=== PATIENT | female | born 1990 | race Caucasian/White ===

== ENCOUNTER 2022-02-22 06:13 | Day surgery (SDC) | payer BC, SELFPAY ==
--- NOTE | 2022-02-22 06:21 | SUR.PREOP ---
HOME COVID TEST NEGATIVE DONE ON @ 2100.
[2022-02-22 06:29] VITALS: BP 114/78; PULSE 92; RESP 16; TEMP 36.7; O2SAT 100
[2022-02-22 06:30] VITALS: BMI 24.7
[2022-02-22] MEDS: LACTATED RINGERS 1000 ML 1,000 ML 100 ML IV (06:35)
[2022-02-22] MEDS: SODIUM CHLORIDE 0.9 % (FLUSH) 10 ML SYRINGE IVF (06:35)
[2022-02-22 06:48] LABS: Ur HCG Qualitative* Negative (Negative)
[2022-02-22] MEDS: CEFAZOLIN 2 GM INJ IVP (07:30)
--- NOTE | 2022-02-22 07:48 | W.ANESCHARGE ---
Anesthesia Charges Start Date/Time Anesthesia Start Date: 02/22/22 Anesthesia Start Time: 07:20 Stop Date/Time Anesthesia Stop Date: 02/22/22 Anesthesia Stop Time: 08:05 Summary Emergency: No
--- NOTE | 2022-02-22 08:05 | PM.GSPRC ---
Operative Note Date of procedure: 02/22/22 Type of Procedure: 1. Excision of the left preauricular facial cyst. Procedure Description: After discussing the risks and benefits of the procedure, the patient signed informed consent.? The operative site was marked and the patient was brought to the operating room and placed on the operating table in supine position.? Care was taken to pad the patient's pressure points.?? The patient was then sedated by anesthesia.?? The operative site was then prepped and draped in the usual sterile fashion.? A time-out was then performed. Local anesthetic was injected in the surgical site. A vertical elliptical incision was made around the cyst excising hyperemic skin that comprised the anterior wall of the cyst. Subcutaneous tissues were divided with a scalpel. The cyst appeared to be very superficial positioned over the superficial fascia. No deep openings or fistulous tracts were noted in subcutaneous tissue. Once the cyst was removed, it was sent to pathology. It was measuring 2.6 x 1.4 cm. Hemostasis was achieved with cautery. Superficial skin flaps were developed anteriorly with cautery. the incision was then reapproximated with 3-0 Vicryl sutures. The skin was closed with a running 4-0 Monocryl stitch. Steri-Strips and sterile pressure dressing were placed over the incision. ? The patient was then woken and transported to the recovery area in stable condition. ? The patient tolerated the procedure well. Findings: Superficial simple appearing cyst. No definite cyst wall was noted but necrotic tissue was noted in the excised tissue. No deep fistulous tracts were noted. Anesthesia: MAC and local Surgeon: Zane Patino MD Estimated blood loss (mL): 2 Condition: stable Disposition: same day
[2022-02-22 08:10] VITALS: BP 96/62; PULSE 88; RESP 16; TEMP 36.9; O2SAT 98
[2022-02-22 08:15] VITALS: BP 106/78; PULSE 82; RESP 16; O2SAT 98
[2022-02-22 08:30] VITALS: BP 104/70; PULSE 72; RESP 16; O2SAT 100
[2022-02-22 08:45] VITALS: BP 104/66; PULSE 77; RESP 16; O2SAT 100
--- NOTE | 2022-02-22 09:34 | W.ANESCHARGE ---
Anesthesia Charges Start Date/Time Anesthesia Start Date: 02/22/22 Anesthesia Start Time: 07:20 Stop Date/Time Anesthesia Stop Date: 02/22/22 Anesthesia Stop Time: 08:05 Summary Emergency: No
== END 2022-02-22 09:00 | disposition home or self-care (01) ==
PROVIDERS: Anesthesiology; Visit Provider Surgery
PROC: (CPT 11444; principal; 2022-02-22 07:30)
DX: Q18.1 Preauricular sinus and cyst (principal)
CPT/HCPCS: 11444; 00300; 81025; 88304; J0690; J2250; J2704; J3010; J7120

== ENCOUNTER 2022-06-14 10:00 | Outpatient (CLI) | payer BC, SELFPAY | END 2022-06-14 10:01 | disposition home or self-care (01) | LOC: NFLDREF 14:09 | PROVIDERS: Visit Provider Advanced Practice Midwife | DX: O20.9 Hemorrhage in early pregnancy, unspecified (principal) | CPT/HCPCS: 84702 ==

== ENCOUNTER 2022-06-16 10:00 | Outpatient (CLI) | payer BC, SELFPAY | END 2022-06-16 10:01 | disposition home or self-care (01) | LOC: NFLDREF 06-17 03:45 | PROVIDERS: Visit Provider Advanced Practice Midwife | DX: O20.9 Hemorrhage in early pregnancy, unspecified (principal) | CPT/HCPCS: 84702 ==

== ENCOUNTER 2022-06-21 09:30 | Outpatient (CLI) | payer BC, SELFPAY | END 2022-06-21 09:31 | disposition home or self-care (01) | LOC: NFLDREF 06-22 10:42 | DX: O20.9 Hemorrhage in early pregnancy, unspecified (principal) | CPT/HCPCS: 84702 ==

== ENCOUNTER 2022-06-28 08:58 | Outpatient (CLI) | payer BC, SELFPAY ==
--- NOTE | 2022-06-28 09:15 | CRLHL7_ITS ---
For Patients: As a result of the Cures Act, medical imaging exams and procedure reports are released immediately into your electronic medical record. You may view this report before your referring provider. If you have questions, please contact your health care provider. INDICATION: First trimester scan, establish dates. COMPARISON: None. TECHNIQUE: Real-time hernandez-scale imaging of the pelvis was performed. FINDINGS: Sonographic imaging demonstrates a single living intrauterine gestation. The embryo demonstrates a regular cardiac rate measuring 129 beats per minute. The embryo`s crown-rump length measurement of 0.7 cm corresponds to a gestational age of 6 weeks 4 days with a sonographic due date of 02/17/2023. There is a normal-appearing yolk sac. There are no gross abnormalities noted within the embryo at this early state of development. The gestational sac has a normal appearance. There is a hypoechoic perigestational hemorrhage measuring 2.2 x 1.4 x 1.6 cm. The amount of fluid within the sac appears appropriate for gestational age. The cervix is closed. The myometrium appears normal. The ovaries are of normal size. Corpus luteal cyst right ovary. There are no suspicious fluid collections noted in the cul-de-sac. IMPRESSION: Single living intrauterine with sonographic gestational age 6 weeks 4 days and sonographic due date 02/17/2023. Right anterior subchorionic hemorrhage measuring 2.2 x 1.4 x 1.6 cm. Dictated by Luis Schofield MD @ 06/28/2022 9:59:55 AM (Electronically Signed)
== END 2022-06-28 08:59 | disposition home or self-care (01) ==
LOC: US 08:58
PROVIDERS: Visit Provider Advanced Practice Midwife
DX: Z34.91 Encounter for supervision of normal pregnancy, unspecified, first trimester (principal); O20.9 Hemorrhage in early pregnancy, unspecified; Z3A.01 Less than 8 weeks gestation of pregnancy
CPT/HCPCS: 0353U; 76817; 86703; 86803; 86850; 86900; 86901; 87340; 87491; 87591

== ENCOUNTER 2022-06-28 10:22 | Outpatient (CLI) | payer BC, SELFPAY ==
[2022-06-28 19:00] LABS: Chlamydia DNA Amplified* NOT DETECTED (No Detected); GC DNA Amplified* NOT DETECTED (No Detected)
== END 2022-06-28 10:23 | disposition home or self-care (01) ==
PROVIDERS: Visit Provider Advanced Practice Midwife
DX: Z34.91 Encounter for supervision of normal pregnancy, unspecified, first trimester (principal)
CPT/HCPCS: 0353U; 86592; 86703; 86762; 86787; 86803; 86850; 86900; 86901; 87086; 87340

== ENCOUNTER 2022-11-29 08:29 | Outpatient (CLI) | payer BC, SELFPAY | END 2022-11-29 08:30 | disposition home or self-care (01) | LOC: NFLDREF 12-09 21:56 | PROVIDERS: Visit Provider Advanced Practice Midwife | DX: Z34.90 Encounter for supervision of normal pregnancy, unspecified, unspecified trimester (principal) | CPT/HCPCS: 86592 ==

== ENCOUNTER 2022-12-02 08:05 | Outpatient (CLI) | payer BC, SELFPAY | END 2022-12-02 08:06 | disposition home or self-care (01) | LOC: NFLDREF 12-06 12:56 | PROVIDERS: Visit Provider Advanced Practice Midwife | DX: O24.419 Gestational diabetes mellitus in pregnancy, unspecified control (principal) | CPT/HCPCS: 82951; 82952 ==

== ENCOUNTER 2023-01-25 08:46 | Outpatient (CLI) | payer BC, SELFPAY | END 2023-01-25 08:47 | disposition home or self-care (01) | LOC: NFLDREF 01-26 12:08 | PROVIDERS: Visit Provider Advanced Practice Midwife | DX: Z34.93 Encounter for supervision of normal pregnancy, unspecified, third trimester (principal); O24.419 Gestational diabetes mellitus in pregnancy, unspecified control; Z3A.36 36 weeks gestation of pregnancy | CPT/HCPCS: 87081; 87653 ==

== ENCOUNTER 2023-02-01 07:04 | Outpatient (CLI) | payer BC, SELFPAY ==
--- NOTE | 2023-02-01 07:15 | CRLHL7_ITS ---
For Patients: As a result of the Century Cures Act, medical imaging exams and procedure reports are released immediately into your electronic medical record. You may view this report before your referring provider. If you have questions, please contact your health care provider. INDICATION: Third trimester scan, evaluate growth. COMPARISON: 11/10/2022 TECHNIQUE: Real time hernandez scale imaging of the fetus was performed. FINDINGS: Sonographic imaging demonstrates a single living intrauterine gestation. Fetus demonstrates a regular cardiac rate of 134 beats per minute. Fetus has a vertex position. The placenta lies posteriorly. Amniotic fluid volume appears normal and there is a single deepest vertical pocket: 7.0 cm. The estimated weight is 2899gm which lies at the 34th %. On the prior OB ultrasound exam dated 11/10/2022 the estimated weight was at the 90th%. BPD 13th percentile. HC 38th percentile. AC 31st percentile. FL 42nd percentile. The HC/AC ratio measures 1.03 range (0.92-1.07). IMPRESSION: Sonographic gestational age 36 weeks 3 days and sonographic due date 02/26/2023. Sonographic age 5 days behind the clinical age. Estimated weight 34th percentile. Abdominal circumference 31st percentile. Dictated by Luis Schofield MD @ 02/02/2023 10:25:21 AM (Electronically Signed)
== END 2023-02-01 07:05 | disposition home or self-care (01) ==
LOC: US 07:05
PROVIDERS: PCP Student in an Organized Health Care Education/Training Program; Visit Provider Advanced Practice Midwife
DX: Z34.83 Encounter for supervision of other normal pregnancy, third trimester (principal); O24.419 Gestational diabetes mellitus in pregnancy, unspecified control; Z3A.36 36 weeks gestation of pregnancy
CPT/HCPCS: 76816

== ENCOUNTER 2023-02-21 19:23 | Inpatient (IN) | payer BC, SELFPAY ==
[2023-02-21] VITALS (17 sets, daily range): BP systolic 100–126; BP diastolic 55–71; PULSE 65–84; RESP 16–18; TEMP 36.7–36.9; BMI 30.3
--- NOTE | 2023-02-21 19:57 | P.LDBA_ITS ---
Subjective History of Present Illness Time Seen by Provider: 19:57 Date Seen: 02/21/23 Specific Issues/Plans : [facility] H & P done 02/03 by Denisha Cameron IOL scheduled 03/01 1. Hx of scoliosis -denies complications with epidural previously 2. Hx of spina bifida occulta -has already increased folic acid to 4 mg/day -AFP if desired Level II US ordered: WNL 3. Hx of macrosomic baby (10 lb 6 oz at 41.1 wks) -denies any complications 4. Still son at [facility], but did have low supply issues 5. Hx of MRSA, cleared in last 6. Spotting in early , MARGUERITE noted on u/s 7. cardiac arrhythmia noted at 24 wks. Referred to [facility]. -No abnormalities noted on level II or w/ heart rhythm. Likely PACS, which are usually benign. -If noted again, re-refer to perinatology, and perform weekly prolonged monitoring to screen for progression to tachycardia. 8. Gestational Diabetes, diet controlled -growth us at 37 weeks: EFW 34% -recommended IOL 39-40.6 weeks COVID: fully vaccinated and boosted maybe 2 times Flu: 02/17/2022 TDAP: 12/15/2022 RSV:01/10/23 32 wk Mental Health: 12/30/2022 Comments: Felisha is being admitted to Labor and Delivery for imminent delivery. She is a 32 year old G 2 P 1 at?40.0 weeks gestation. Her full history and physical was dictated by Denisha Cameron on 02/03/23. Please see this for details. ? She is coping well with labor pain/contractions. Her partner is with her for support. She was planning an epidural for pain management. Felisha states ctx started around 1400, becoming more intense and closer together. CNM called and per RN, complete w/ bulging bag. Upon arrival, RN trying to place IV for epidural. CNM offered SVE to see if there was time, as she denied an urge to push. W/ the next contraction, she states the baby was coming. OB - Problem Based A/P Additional Plan (1) Uterine contractions: Status: Acute (2) SROM (spontaneous rupture of membranes): Status: Acute (3) Gestational diabetes: Status: Acute (4) Supervision of other normal : Status: Acute (5) arrhythmia affecting , antepartum: Status: Acute (6) Spina bifida: Problem details: Had epidural w/ first, no complications Status: Acute (7) Scoliosis: Status: Chronic Plan Assessment:?? at 40.0 weeks gestation?? GBS neg Patient is coping well with challenges of labor.?? Labor type: Spontaneous, Active labor? complicated by: -Hx of scoliosis -Hx of spina bifida occulta - Hx of MRSA, cleared in last - cardiac arrhythmia noted at 24 wks. Resolved in . Labor complicated by: -Hx of macrosomic baby -Gestational Diabetes, diet controlled ? Plan:?? * Admit to L & D? * IV access: Can be placed if there is time for an epidural, otherwise not needed * Monitoring: continuous * Candidate for analgesia of choice.? Planning epidural for pain management if there is time to place * Expectant management at this time * Anticipate progress to NVD - delivery imminent Delivery/Labor/Induction Plan Plan: expectant management OB Exam Physical Exam Vital signs: Pulse BP 84 126/71 02/21/23 19:46 02/21/23 19:46 Narrative: VSS, afebrile? General Appearance:? Calm, cooperative.? No acute distress.? Normal affect.? Psychiatric Exam: Alert and oriented, appropriate affect? HEENT: normocephalic, neck supple, full ROM? Respiratory:? Symmetrical chest wall movement.? Normal respiratory effort.? Abdomen: Gravid, non tender? Extremities:? normal and trace edema? Skin: warm, dry.??? Ctx:? Q 1-2 min apart.? ? ? Strong? FHTs:? Baseline: 120.? Variability: min.?? Accels: none.??? Decels:? likely variable decels w/ ctx, difficult to trace r/t pt position.? SVE: complete per RN, bulging bag on admit? Membranes: ? SROM,?large amount of clear fluid shortly after arrival. Detailed Labor and Delivery Exam Patient Gravid: Yes
--- NOTE | 2023-02-21 20:09 | W.PM.OBVAGDE ---
OB Procedure Vag Delivery Mother Details Mother Details: The patient is a 32 year-old, 2, Para 1, admitted on 02/21/23 at 40.0 Days gestation. : 2 Para: 2 Weeks Gestation: 40.0 Admission Date: 02/21/23 Additional Details Amniotic Membrane Status: SROM Amniotic Membrane Rupture Date: 02/21/23 Amniotic Membrane Rupture Time: 19:20 Amniotic Membrane Fluid Description: Clear Analgesia/Anesthesia Type: None Waterbirth: No Pitcoin: No Intrapartal Events: None Labor Onset: 14:00 Complete: 19:41 Pushin:40 Heart: heart tones during second stage were 120, min variability, likely decels w/ ctx, difficult to trace. Good return to baseline between ctx. Delivery Details Delivery Date: 02/21/23 Delivery Time: 19:41 Route of delivery: Gender: Female Viability: Alive; Heart Rate Present Position at Delivery: OA Delivery Details: CNM arrived, and offered SVE prior to IV placement. Reviewed if she was complete she may not be able to get her epidural in time. Felisha continued to be standing at the bedside, and w/ next ctx stated the baby was coming. Underwear removed by CNM and RN, and baby noted to be . She delivered in the standing position. ? ? Spontaneous vaginal delivery at 1941 of?a viable? female infant.??Delivered in vertex OA position.??Shoulders delivered easily.? Spontaneous cry noted.?? held by CNM and Felisha was assisted to sit on the edge of the bed. When ready she was helped back into the bed, and her infant was placed in her arms.??Cord?was clamped and cut after a 5+ minute delay.? Shoulder dystocia: no? Nuchal cord: no? Meconium stained?fluid: no? Water : no? ? ? 8 at 1 minute and 9 at 5 minutes.? ? Placenta delivered spontaneously and?complete?at 194 with a?3 vessel?cord.?? Bleeding well controlled ? Mother and infant were stable after delivery.? ? Lacerations:? No lacerations noted ? Bleeding?post delivery?was: minimal. ?The fundas was firm to palpation.? Blood loss: 150?mL.? Blood loss measurement type: ? EBL? ? Sponge,?lap?and needles counts are correct.? Mother and were stable after delivery.? 1 Minute Interval Total Score: 8 10 Minute Interval Total Score: 9 Additional Details Shoulder Dystocia: No Placenta Delivery Time: 19:49 Placental Delivery Description: Spontaneous Procedure Done: Global Blood Loss: 150 Laceration: None Blood Loss Measurement Type: EBL Cord Vessel Description: 3 Vessels Event Summary Status: Mother and infant were stable after delivery. Disposition: floor
[2023-02-22] VITALS: BP 117/77; PULSE 71; RESP 16; TEMP 36.9; O2SAT 96
[2023-02-22 04:42] VITALS: BP 114/73; PULSE 74; RESP 16; TEMP 36.6
--- NOTE | 2023-02-22 07:46 | P.DS_ITS ---
DS: Providers Provider Date Seen: 02/22/23 Date of admission: 02/21/23 19:23 Primary care physician: Sindhu Verde PA-C Admitting Clinician: Kimmie Cameron CNM Attending Physician on discharge: Stephane Jimenez CNM Date of Discharge: 02/22/23 DS: Diagnosis Discharge Diagnosis (1) care and examination immediately after delivery: Status: Acute (2) Lactating mother: Status: Acute (3) Gestational diabetes: Status: Acute Exam Narrative: Exam Narrative: VSS, afebrile GENERAL APPEARANCE: ?normal affect, alert, no distress MOOD: ?appropriate HEENT: normocephalic, neck supple, full ROM CHEST: ?Symmetrical chest wall movement. ?Normal respiratory effort. ?Clear to auscultation HEART: ?regular rate and rhythm ABDOMEN: ?soft, non-tender. Uterine fundus is firm, 3 below Umbilicus, Midline and is appropriate for the stage of recovery. ?Bowel sounds present. PERINEUM: ?mild edema of the perineum. EXTREMITIES: ?normal and no edema Const: Vital Signs, click to edit/add: Vital Signs - 24 hr 02/21/23 19:46 02/21/23 19:46 02/21/23 20:00 Temperature 98.4 F 98.4 F Pulse Rate 84 Pulse Rate [Blood Pressure Cuff] 78 Respiratory Rate 18 Blood Pressure 126/71 Blood Pressure [Ri ght Arm] 112/55 L Pulse Oximetry Oxygen Delivery Me thod 02/21/23 20:01 02/21/23 20:15 02/21/23 20:16 Temperature Pulse Rate 78 75 Pulse Rate [Blood Pressure Cuff] 75 Respiratory Rate 16 Blood Pressure 112/55 L 112/58 L Blood Pressure [Ri ght Arm] 112/58 L Pulse Oximetry Oxygen Delivery Me thod 02/21/23 20:30 02/21/23 20:31 02/21/23 20:45 Temperature Pulse Rate 69 Pulse Rate [Blood Pressure Cuff] 69 71 Respiratory Rate 16 18 Blood Pressure 101/58 L Blood Pressure [Ri ght Arm] 101/58 L 101/64 Pulse Oximetry Oxygen Delivery Me thod 02/21/23 20:46 02/21/23 21:00 02/21/23 21:01 Temperature Pulse Rate 71 69 Pulse Rate [Blood Pressure Cuff] 69 Respiratory Rate 18 Blood Pressure 100/64 109/64 Blood Pressure [Ri ght Arm] 109/64 Pulse Oximetry Oxygen Delivery Me thod 02/21/23 21:15 02/21/23 21:16 02/21/23 21:30 Temperature Pulse Rate 70 Pulse Rate [Blood Pressure Cuff] 70 78 Respiratory Rate 16 18 Blood Pressure 105/66 Blood Pressure [Ri ght Arm] 105/66 108/67 Pulse Oximetry Oxygen Delivery Me thod 02/21/23 21:31 02/21/23 21:45 02/21/23 21:46 Temperature 98.1 F Pulse Rate 78 65 Pulse Rate [Blood Pressure Cuff] 65 Respiratory Rate 16 Blood Pressure 108/67 113/69 Blood Pressure [Ri ght Arm] 113/69 Pulse Oximetry Oxygen Delivery Me thod 02/21/23 21:46 02/22/23 00:00 02/22/23 04:42 Temperature 98.1 F 98.4 F 97.8 F Pulse Rate Pulse Rate [Blood Pressure Cuff] 71 74 Respiratory Rate 16 16 Blood Pressure Blood Pressure [Ri ght Arm] 117/77 114/73 Pulse Oximetry 96 Oxygen Delivery Me thod Room Air Documenting provider has reviewed patient's vital signs: yes OB - DS: Summary Hospital Course Hospital Course: Felisha is a 32 y.o. who was admitted to L & D for active labor. ?She had an uncomplicated NVD .?The patient feels well. ?The pain is well controlled with current medications. ?She has no new complaints. ?She is breast feeding and reports things are going well.? the patient has done well.? Vitals have been stable.? She has remained afebrile.? Has a good appetite, is tolerating a general diet. ?She is voiding without difficulty.? She is passing gas and has not had a bowel movement.? She is ambulating and denies any dizziness.? Has Small amount of rubra lochia. ?She is planning condoms for prevention. She desires a 24 hour discharge. Peripartum Data Infant delivery method: Vaginal Laceration description: None complications: none [place] Gender: Female Infant Discharge Plan: Home Status at Discharge Functional status at discharge: independent ambulation Overall status at discharge: patient is progressing back to baseline Time Spent with Patient Time attestation: Total time spent providing and/or coordinating discharge services: Time spent: Less than 30 minutes Discharge Plan Discharge Disposition: Home, Self-Care Date of Admission: 02/21/23 19:23 Attending Provider on Discharge: Stephane Jimenez Primary Care Provider: Sindhu Verde Condition: Stable Anticipated Discharge Date/Time: 02/22/23 21:00 Discharge Medications: New acetaminophen 500 mg Tablet 1,000 mg PO Q6H PRN (Reason: pain/fever) Qty: 0 0RF docusate sodium 100 mg Capsule 100 mg PO DAILY Qty: 90 1RF ibuprofen 600 mg Tablet 600 mg PO Q6H PRNQty: 60 0RF Continued ferrous sulfate 325 mg (65 mg iron) tablet,delayed release (DR/EC) 325 mg PO Q OTHER DAY cholecalciferol (vitamin D3) 50 mcg (2,000 unit) capsule 50 mcg PO QDAY biotin 2,500 mcg capsule 5,000 mcg PO QDAY DHA 200 mg capsule PO DAILY (DME) Test Strips Misc See Rx Instructions .MEDSUPPLY Qty: 100 3RF Rx Instructions: Test blood sugar 4 times daily. (DME) lancets Misc See Rx Instructions .MEDSUPPLY Qty: 100 3RF Rx Instructions: Test blood sugar 4 times daily. (DME) Blood Glucose Meter Misc See Rx Instructions .MEDSUPPLY Qty: 1 0RF Rx Instructions: As directed folic acid 1 mg tablet 4 mg PO QDAY Qty: 120 12RF Discontinued docusate sodium [Colace] 100 mg capsule 100 mg PO QDAY Discharge Orders: Discharge Order (Routine); Ordered 02/22/23 Ordered By: Stephane Jimenez Patient Education: OB Over the Counter Medication Information, OB Vaginal/Breast Feeding Activity Level: Activity as Tolerated Discharge Diet: Regular Follow Up Appointments: [facility] [Provider Group] Forms: [facility] Info Instructions
[2023-02-22 07:57] VITALS: BP 110/70; PULSE 74; RESP 16; O2SAT 96
[2023-02-22] MEDS: DOCUSATE SODIUM 100 MG CAPSULE PO (09:22)
[2023-02-22 12:18] VITALS: BP 114/75; PULSE 70; RESP 16; TEMP 36.6; O2SAT 96
[2023-02-22 15:15] VITALS: BP 120/79; PULSE 66; RESP 16; TEMP 36.7; O2SAT 96
== END 2023-02-22 21:08 | disposition home or self-care (01) | DRG 560 ==
LOC: OB OUT 19:23 → OB 19:24
PROVIDERS: Admitting Provider Advanced Practice Midwife; PCP Student in an Organized Health Care Education/Training Program; Visit Provider Advanced Practice Midwife
DX: O24.420 Gestational diabetes mellitus in childbirth, diet controlled (principal); Z3A.40 40 weeks gestation of pregnancy; M41.9 Scoliosis, unspecified; Q05.9 Spina bifida, unspecified; Z37.0 Single live birth
CPT/HCPCS: 82962; A9270

== ENCOUNTER 2023-03-03 13:29 | Outpatient (CLI) | payer BC, SELFPAY ==
--- NOTE | 2023-03-03 17:00 | P.LACCB_ITS ---
Consult Note - Mom Date of Visit Date of visit: 03/03/23 property consultant: Beth Muniz Visit Code: Visit Patient's Information Phone number: [phone] : 2 Para: 2 Allergies No Known Drug Allergies Allergy (Verified 03/11/23 13:25) Mother's Medical History: Medical History (Updated 02/25/23 @ 00:00 by Background Daemon) GDM Work Plans: Returns to work in a few months, two days/week from home Delivery Information Delivery type: Vaginal Weeks Gestation: 40.0 Gestational Age: AGA Weight: 3.37 kg Discharge Weight: 3.37 kg Baby's Information Baby's Age at Visit: 10 days Baby's Provider or Clinic: Dr. Barrow Jaundice: Yes (to nipple line) Reason for Consult Reason for Consult: pre and post feeding weight Past Experience Past Experience: Yes (nursed her older son x 20 months) Current Frequency of Day Feedings: baby is nursing every 2 - 3 hours around the clock Both Breasts: Yes (during the day) Suck: strong Latch: fairly wide Length of Time: 10 - 15 minutes/side Pumping Pumping: Yes (with her Haakaa) Quantity Pumped: gets 4 - 5 oz total for the day Supplementing EMB Supplement: Yes (giving 1 oz EBM TID) Formula Supplement: No Baby Elimination Number of Wet Diapers a Day: every feeding Number of BM a Day: about every other feeding, yellow and seedy Onsite Pre-Feed weight: 3.274 kg Post-Feed weight: 3.31 kg Milk Transferred (mL): 36 Assessments/Interventions Assessments/Interventions: Met with mom and this now 10 day old ex- term AGA baby for consult. Baby was seen in the ER on 02/23 on the advice of the peds clinic air conditioning insulation installer b/c she had not had a void or BM in 24 hours. She was seen by that day and during a pre/post feeding did not transfer anything. At that visit mom was advised to nurse her but then supplement after every feeding. Baby has since been seen by PCP with fairly good weight gain. Mom reports baby is nursing every 2 - 3 hours. During the day she will take both sides, but overnight she's extra sleepy and will only take one side. Nursing sessions last 10 - 15 min/side and mom has to work to keep her awake. Mom felt her milk come in around 02/24 and states she now supplements baby with 1 oz EBM about three times/day. She uses her Haakaa and gets enough to only offer EBM. Breasts are a little tubular in shape, but the intramammary distance is < 1.5 inches. Mom denies feelings of engorgement when her milk came in, but reports they just felt more full. Her nipples are everted, a little longer than average, no damage noted. Baby has gained 21 grams/day since her NB visit on 02/24/23 and is now 3% below BW at 10 DOL. Mom denies any caput/cephalohematoma and states baby has equal ROM when turning her head and moving her extremities. Her palate is a little higher than normal. The upper and lower frenulum appear to be WNL. She has a strong suck on a finger and her tongue consistently extends past the gum line. There is some canoeing with lateralization. She's jaundiced to her nipple line. Mom latched baby to the left side first. The latch was fairly wide and baby was pretty vigorous initially, but pretty quickly needed a lot of stimulation to stay awake and actively suckling. Mom switched her after about 10 minutes and again needed to stimulate her for the entire feeding or she would fall asleep. After about 15 minutes she was weighed and had transferred 32 ml. Once away from mom she started to give hunger cues so mom offered the left side again and baby nursed with stimulation for another 10 minutes, transferring 4 ml for a total of 36 ml. Mom has a Spectra from her first baby and a new Pumpables pump. She used a measuring guide from [employer] and feels she has the correct flange size. We discussed that a baby this age usually take 1.5 - 2 oz each feeding and that baby is slipping down on the growth curve, going from 41% to 37% in the last week. Plan: 1. Mom to continue nursing baby every 2 - 3 hours. Gave her a few new ideas to try that might wake her up at night so she's more interested in taking both sides. Suggested she keep the feedings to 20 - 30 minutes total. 2. Instructed mom to offer 1 oz EBM after daytime feedings for the next week. As she is getting 4 - 5 oz/day with her Hatipa she wanted to offer one oz 5 times/day so this was agreed on. 3. Continue with Vamshi but may have to start pumping after some feedings if she isn't able to express 5 oz/day (or offer formula). 4. Will f/u with PCP for a 2 week C and this feeding plan can be re-evaluated. Will also f/u by phone to see if she's interested in a one month weight check in . Meds Home Medications and Allergies Home Medications Medication Instructions Recorded Confirmed Type biotin 2,500 mcg capsule 5,000 mcg PO QDAY 06/28/22 03/11/23 History cholecalciferol (vitamin D3) 50 50 mcg PO QDAY 06/28/22 03/11/23 History mcg (2,000 unit) capsule docosahexaenoic acid 200 mg mg PO DAILY 06/28/22 03/11/23 History capsule ( DHA) Allergies Allergy/AdvReac Type Severity Reaction Status Date / Time No Known Drug Allergies Allergy Verified 03/11/23 13:25
== END 2023-03-03 13:30 | disposition home or self-care (01) ==
LOC: OB LAC 13:29
PROVIDERS: PCP Student in an Organized Health Care Education/Training Program; Visit Provider Advanced Practice Midwife
DX: Z39.2 Encounter for routine postpartum follow-up (principal)
CPT/HCPCS: 99211

== ENCOUNTER 2023-04-08 07:58 | Outpatient (CLI) | payer BC, SELFPAY | END 2023-04-08 07:59 | disposition home or self-care (01) | LOC: NFLDREF 12:45 | PROVIDERS: PCP Student in an Organized Health Care Education/Training Program; Referring Provider Student in an Organized Health Care Education/Training Program; Visit Provider Advanced Practice Midwife | DX: Z39.2 Encounter for routine postpartum follow-up (principal); O24.419 Gestational diabetes mellitus in pregnancy, unspecified control | CPT/HCPCS: 82947; 82950 ==

== ENCOUNTER 2024-08-30 08:19 | Outpatient (CLI) | payer BC, SELFPAY ==
--- NOTE | 2024-08-30 08:15 | CRLHL7_ITS ---
For Patients: As a result of the Cures Act, medical imaging exams and procedure reports are released immediately into your electronic medical record. You may view this report before your referring provider. If you have questions, please contact your health care provider. OB ULTRASOUND LESS THAN 14 WEEKS, 08/30/2024 CLINICAL HISTORY: Dating and viability. TECHNIQUE: Real time hernandez scale imaging of the fetus was performed. Evaluate anatomy. Transvaginal imaging performed. COMPARISON: None. FINDINGS: Surgery: None. Imaging: TV. CRL: 2.3 cm, 9 weeks 0 days. JACK 04/04/2025. FHR: 190 bpm. GEST SAC: 4.8 cm, appears WNL. YOLK SAC: 4.3 mm, appears WNL. RIGHT OV: WNL 2.3 x 1.1 x 1.3 cm. LEFT OV: WNL 4.3 x 1.5 x 2.3 cm. IMPRESSION: 1. Single living intrauterine measuring 9 weeks 0 days and sonographic due date 04/04/2025. 2. Right superior subchorionic hemorrhage measures 2.4 x 0.9 x 3.4 cm. Luis Schofield M.D. Diagnostic Radiologist [email or web address] Transcribed: 4:54 pm DW/Dictated by: Luis Schofield MD @ 08/30/2024 4:12:00 PM (Electronically Signed)
== END 2024-08-30 08:20 | disposition home or self-care (01) ==
LOC: US 08:20
PROVIDERS: PCP Student in an Organized Health Care Education/Training Program; Visit Provider Advanced Practice Midwife
DX: Z34.91 Encounter for supervision of normal pregnancy, unspecified, first trimester (principal); O20.9 Hemorrhage in early pregnancy, unspecified; Z3A.09 9 weeks gestation of pregnancy
CPT/HCPCS: 76817; 83021; 86703; 86706; 86803; 86850; 86900; 86901; 87086; 87340; 87491; 87591

== ENCOUNTER 2024-08-30 09:13 | Outpatient (CLI) | payer BC, SELFPAY ==
[2024-08-30 13:24] LABS: Chlamydia DNA Amplified* NOT DETECTED (No Detected); GC DNA Amplified* NOT DETECTED (No Detected)
== END 2024-08-30 09:14 | disposition home or self-care (01) ==
PROVIDERS: PCP Student in an Organized Health Care Education/Training Program; Visit Provider Physician Assistant
DX: Z34.91 Encounter for supervision of normal pregnancy, unspecified, first trimester (principal)
CPT/HCPCS: 83020; 83021; 85660; 86592; 86703; 86704; 86706; 86762; 86787; 86803; 86850; 86900; 86901; 87086; 87340; 87491; 87591

== ENCOUNTER 2024-10-01 11:59 | Outpatient (CLI) | payer BC, SELFPAY | END 2024-10-01 12:00 | disposition home or self-care (01) | PROVIDERS: PCP Student in an Organized Health Care Education/Training Program; Visit Provider Advanced Practice Midwife | DX: R35.0 Frequency of micturition (principal) | CPT/HCPCS: 87086 ==

== ENCOUNTER 2025-01-10 08:30 | Outpatient (CLI) | payer BC, SELFPAY | END 2025-01-10 08:31 | disposition home or self-care (01) | LOC: NFLDREF 01-12 17:36 | PROVIDERS: PCP Student in an Organized Health Care Education/Training Program; Referring Provider Student in an Organized Health Care Education/Training Program; Visit Provider Advanced Practice Midwife | DX: Z34.92 Encounter for supervision of normal pregnancy, unspecified, second trimester (principal) | CPT/HCPCS: 86592 ==

== ENCOUNTER 2025-01-11 07:49 | Outpatient (CLI) | payer BC, SELFPAY | END 2025-01-11 07:50 | disposition home or self-care (01) | LOC: NFLDREF 01-12 19:43 | PROVIDERS: PCP Student in an Organized Health Care Education/Training Program; Referring Provider Student in an Organized Health Care Education/Training Program; Visit Provider Advanced Practice Midwife | DX: O99.810 Abnormal glucose complicating pregnancy (principal); Z3A.38 38 weeks gestation of pregnancy | CPT/HCPCS: 82951; 82952 ==

== ENCOUNTER 2025-01-11 09:34 | Outpatient (CLI) | payer BC, SELFPAY ==
--- NOTE | 2025-01-11 10:00 | CRLHL7_ITS ---
For Patients: As a result of the Century Cures Act, medical imaging exams and procedure reports are released immediately into your electronic medical record. You may view this report before your referring provider. If you have questions, please contact your health care provider. OB ULTRASOUND FOLLOW-UP CLINICAL HISTORY: History of macrosomia. TECHNIQUE: Real time hernandez scale imaging of the fetus was performed. Transabdominal imaging performed. COMPARISON: 08/30/2024. FINDINGS: JACK by LMP: 04/03/2025. GA: 28 weeks 2 days. Gestation: Single. Cervix: Visualized. TA measurement 4.1 cm. Position: Vertex. Amniotic Fluid: 7.1 cm SDP. Placenta: Technique: TA. Placenta Position: Anterior. Dopplers: Heart Rate: 146 bpm. BIOMETRY BPD: 7.4 cm, 29 weeks 6 days. 84.0% HC: 27.2 cm, 29 weeks 5 days. 64.0% AC: 26.1 cm, 30 weeks 2 days. 91.3% FL: 5.4 cm, 28 weeks 5 days. 46.6% FL/AC Ratio: 20.79% HC/AC Ratio: 1.04. EFW: 1431 grams, 3 lb 2 oz. Age by this US: 29 weeks 5 days. JACK by this US: 03/24/2025. Percentile by JACK: 86.1% IMPRESSION: 1. Sonographic gestational age 29 weeks 5 days and sonographic due date 03/24/2025. Sonographic age is 10 days ahead of the clinical age. 2. Estimated weight 86th percentile. Abdominal circumference 91st percentile. Luis Schofield M.D. Diagnostic Radiologist [email or web address] Transcribed: 1:14 pm DW/Dictated by: Luis Schofield MD @ 01/11/2025 10:38:00 AM (Electronically Signed)
== END 2025-01-11 09:35 | disposition home or self-care (01) ==
LOC: US 09:35
PROVIDERS: PCP Student in an Organized Health Care Education/Training Program; Visit Provider Advanced Practice Midwife
DX: O09.293 Supervision of pregnancy with other poor reproductive or obstetric history, third trimester (principal); Q05.9 Spina bifida, unspecified; O36.63X0 Maternal care for excessive fetal growth, third trimester, not applicable or unspecified; Z3A.28 28 weeks gestation of pregnancy; O99.810 Abnormal glucose complicating pregnancy
CPT/HCPCS: 76816; 82951; 82952

== ENCOUNTER 2025-02-05 09:13 | Outpatient (CLI) | payer BC, SELFPAY ==
--- NOTE | 2025-02-05 09:15 | CRLHL7_ITS ---
For Patients: As a result of the Cures Act, medical imaging exams and procedure reports are released immediately into your electronic medical record. You may view this report before your referring provider. If you have questions, please contact your health care provider. OB ULTRASOUND LMP: 06/27/2024. JACK by LMP: 04/03/2025. GA: 31 w, 6 d. Single. Comparison: 01/11/2025 (20 images). INDICATION: Gestational diabetes mellitus. TECHNIQUE: Real time grayscale imaging of the fetus was performed. Transabdominal. CERVIX: Not visualized. POSITIONING: Vertex. AMNIOTIC FLUID: 6.7 cm. SDP (N: greater than 2 x 1 cm) PLACENTA: Technique: Transabdominal. PLACENTA POSITION: Anterior. DOPPLER: heart rate: 148 bpm. BIOMETRY: BPD: 8.3 cm. 33 w, 3 d, 85%. HC: 30.5 cm. 33 w, 6 d, 68%. AC: 29.1 cm. 33 w, 1 d, 82%. FL: 6.1 cm. 31 w, 5 d, 34%. FL/AC ratio: 21.03%. HC/AC ratio: 1.05. EFW: 2058g. Weight: 4 lbs., 9 oz. age by this US: 33 w, 0 d. JACK by this US: 03/26/2025. Percentile by JACK: 71%. IMPRESSION: 1. Sonographic gestational age 33 weeks 0 days and sonographic due date 03/26/2025. Sonographic age is 8 days ahead of the clinical age. 2. Estimated weight 71st percentile. Abdominal circumference 82nd percentile. Luis Schofield M.D. Diagnostic Radiologist [email or web address] RANJITH/[email or web address]/Dictated by: Luis Schofield MD @ 02/05/2025 11:49:00 AM (Electronically Signed)
== END 2025-02-05 09:14 | disposition home or self-care (01) ==
LOC: US 09:14
PROVIDERS: PCP Student in an Organized Health Care Education/Training Program; Visit Provider Advanced Practice Midwife
DX: O24.419 Gestational diabetes mellitus in pregnancy, unspecified control (principal); O36.63X0 Maternal care for excessive fetal growth, third trimester, not applicable or unspecified; Z3A.33 33 weeks gestation of pregnancy
CPT/HCPCS: 76816

== ENCOUNTER 2025-03-07 08:34 | Outpatient (CLI) | payer BC, SELFPAY ==
--- NOTE | 2025-03-07 08:15 | CRLHL7_ITS ---
For Patients: As a result of the Century Cures Act, medical imaging exams and procedure reports are released immediately into your electronic medical record. You may view this report before your referring provider. If you have questions, please contact your health care provider. OB ULTRASOUND LMP: 06/27/2024. JACK by LMP: 04/03/2025. GA: 36 w, 1 d. Single. Comparison: 02/05/2025, 01/11/2025, 11/06/2024. INDICATION: GDM and history of macrosomia. TECHNIQUE: Real time grayscale imaging of the fetus was performed. Transabdominal. CERVIX: Not visualized. POSITIONING: Vertex. AMNIOTIC FLUID: 6.3 cm. SDP (N: greater than 2 x 1 cm) PLACENTA: Technique: Transabdominal. PLACENTA POSITION: Anterior. DOPPLER: heart rate: 150 bpm. BIOMETRY: BPD: 8.9 cm. 35 w, 6 d, 51.5%. HC: 32.9 cm. 37 w, 3 d, 50.3%. AC: 35.1 cm. 39 w, 0 d, >97%. FL: 6.9 cm. 35 w, 3 d, 27.2%. FL/AC ratio: 19.7%. HC/AC ratio: 0.9. EFW: 3262g. Weight: 7 lbs., 3 oz. age by this US: 37 w, 0 d. JACK by this US: 03/28/2025. Percentile by JACK: 87.6%. IMPRESSION: 1. Sonographic gestational age 37 weeks 0 days and sonographic due date 03/28/2025. Sonographic age 6 days ahead of clinical age. 2. Estimated weight 88th percentile. Abdominal circumference greater than 97th percentile. Decreased FL/AC ratio. Luis Schofield M.D. Diagnostic Radiologist [email or web address] RANJITH/[email or web address]/Dictated by: Luis Schofield MD @ 03/07/2025 10:19:00 AM (Electronically Signed)
== END 2025-03-07 08:35 | disposition home or self-care (01) ==
LOC: US 08:34
PROVIDERS: PCP Student in an Organized Health Care Education/Training Program; Visit Provider Advanced Practice Midwife
DX: O24.419 Gestational diabetes mellitus in pregnancy, unspecified control (principal); O36.63X0 Maternal care for excessive fetal growth, third trimester, not applicable or unspecified; Z3A.36 36 weeks gestation of pregnancy
CPT/HCPCS: 76816

== ENCOUNTER 2025-03-07 09:45 | Outpatient (CLI) | payer BC, SELFPAY | END 2025-03-07 09:46 | disposition home or self-care (01) | LOC: NFLDREF 03-11 14:18 | PROVIDERS: PCP Student in an Organized Health Care Education/Training Program; Referring Provider Student in an Organized Health Care Education/Training Program; Visit Provider Midwife | DX: Z34.93 Encounter for supervision of normal pregnancy, unspecified, third trimester (principal) | CPT/HCPCS: 87081; 87653 ==

== ENCOUNTER 2025-03-15 17:45 | Outpatient (CLI) | payer BC, SELFPAY ==
[2025-03-15 17:55] VITALS: BMI 31.6
[2025-03-15 17:58] VITALS: PULSE 93; O2SAT 98
[2025-03-15 17:59] VITALS: RESP 25; TEMP 36.9
[2025-03-15 18:00] VITALS: BP 115/76; PULSE 91
[2025-03-15 18:16] VITALS: BP 105/68; PULSE 88
--- NOTE | 2025-03-15 18:31 | P.OBLDTN_ITS ---
OB - Triage/Final Diagnosis Visit Information Narrative: Felisha is a 34 yo at 37 2/7 weeks gestation that presented today with sharp pain in her lower ribs radiating down her sides. It started after a recent illness where she had been coughing a lot. She reports the pain is 6/10 at times. She often has worsening pain with deep breaths and certain movements and exacerbated by and growing gravid uterus. She was seen in clinic earlier this week and had a chest xray that was negative. She reports her cold symptoms are improving but she does still have a mild cough, this has made her symptoms worse. She was at a [facility] and the pain was just too much so she decided to come in for evaluation. Evaluation Vital signs: Vital Signs - 24 hr 03/15/25 17:58 03/15/25 17:59 03/15/25 18:00 Temperature 98.4 F Pulse Rate 91 Respiratory Rate 25 H Blood Pressure 115/76 Pulse Oximetry 98 03/15/25 18:16 Temperature Pulse Rate 88 Respiratory Rate Blood Pressure 105/68 Pulse Oximetry Final Diagnosis (1) Acute costochondritis: Status: Acute Problem details: Recommended comfort measure treatment with topical lidocaine patch, oxycodone 5 mg to use sparingly as needed, tylenol, heat, and ice. Symptoms may take up to 12 weeks to recover. May improve after delivery. All questions answered. Patient agrees with plan. Discharged home. (2) 37 weeks gestation of : Status: Acute
--- NOTE | 2025-03-15 19:04 | PC.OBNST ---
NST Note NST Note Start: 03/15/25 17:52 Freq: ONCE Status: Active Protocol: Document 03/15/25 17:52 [facility] (Rec: 03/15/25 19:04 [facility] [id number]) NST Note 3 Para (# of births) 2 EDC [birth year] Gestational Age In 37 Weeks & 2 Days Weeks & Days High Risk Factors Diabetes - Preexisting Type I Diet Controlled Patient Presented Other with Complaint(s) of Other Complaints Patient came from the ER complaining of pain above the ribs that radiates down both sides of her body. Ramsey Shannon CNM diagnosed costochondritis and prescribed pain medication, incentive spirometer and comfort measures. Reactive Yes Appropriate for Yes Gestational Age HIEU Lea RN Date 03/15/25 Reactive Yes Appropriate for Yes Gestational Age HIEU Walsh RN Date 03/15/25 OB NST charge Yes Complete NST Note Yes via Write Note The provider's electronic signature indicates the NST is reactive/appropriate for gestational age. *Note to provider: If an addendum is required, open the patient's chart and click on the note under the Nurse/Allied Health tab.
== END 2025-03-15 18:45 | disposition home or self-care (01) ==
LOC: OB OUT 17:47 → OB 17:48
PROVIDERS: PCP Student in an Organized Health Care Education/Training Program; Visit Provider Advanced Practice Midwife
DX: O26.893 Other specified pregnancy related conditions, third trimester (principal); R07.89 Other chest pain; O24.410 Gestational diabetes mellitus in pregnancy, diet controlled; Z3A.37 37 weeks gestation of pregnancy
CPT/HCPCS: 59025; G0463